=== PATIENT | male | born 1975 | race Two or more races ===

== ENCOUNTER 2024-05-22 20:56 | Emergency (ER) | payer OTHER ==
[~2024-05-22] VITALS: Ht 165.1 cm; Wt 108.9 kg
[2024-05-22 21:17] VITALS: O2SAT 89
[2024-05-22] MEDS ORDERED: AMLODIPINE-OLM1 EAC3 (21:17)
[2024-05-22] MEDS ORDERED: LOSARTAN POTASS25 MG (21:17)
[2024-05-22] MEDS ORDERED: METHYLPREDNISOLONE SOD SUCC 40 MG VIAL ONE (22:25)
[2024-05-22] MEDS ORDERED: CEFTRIAXONE SODIUM 1,000 MG VIAL ONE (22:25)
[2024-05-22] MEDS ORDERED: IPRATROPIUM/ALBUTEROL SULFATE 3 ML AMPUL.NEB IH ONE ×3 (22:30→23:55)
[2024-05-22] MEDS ORDERED: CEFTRIAXONE SODIUM 1,000 MG VIAL IM ONE (22:30)
[2024-05-22] MEDS ORDERED: METHYLPREDNISOLONE SOD SUCC 40 MG VIAL IM ONE (22:30)
[2024-05-22 23:17] LABS: HEMATOCRIT 39.7 % (39.0-48.0); HEMOGLOBIN 13.6 g/dL (13-16.00); MEAN CORPUSCULAR HEMOGLOBIN 29.2 pg (27.00-32.0); MEAN CORPUSCULAR HGB CONC 34.3 g/dl (32.0-36.0); PLATELET COUNT 206 K/uL (150-450); RED BLOOD COUNT 4.67 M/uL (4.00-6.00); RED CELL DISTRIBUTION WIDTH 13.6 % (11.5-14.5)
[2024-05-22 23:51] LABS: ALBUMIN 3.4 gm/dL (3.4-5.0); BILIRUBIN TOTAL 0.5 mg/dL (0.3-1.2); CALCIUM 8.8 mg/dL (8.5-10.1); CREATININE SERUM 1.29 mg/dL (0.70-1.30); GFR 59.45; GLOBULINA 3.7 G/DL (2.4-3.5); TOTAL PROTEIN 7.1 gm/dL (6.4-8.2)
[2024-05-23 00:05] LABS: POTASSIUM 2.57 mEq/L (3.5-5.1)
[2024-05-23] MEDS ORDERED: PEPCID AC20 MG PO (00:29)
[2024-05-23] MEDS ORDERED: OSEL75CA PO (00:29)
[2024-05-23 02:14] LABS: ABG PH 7.446 (7.35-7.45); ABG pCO2 45.7 mmHg (35-45)
[2024-05-23 02:15] LABS: ABG PO2 59.9 mmHg (80-100); BASE EXCESS 5.7 mmol/l; BICARBONATE 30.7 mmol/l (23-25); SaO2 92.1 %; Tco2 32.1 mmol/l; allen test SATISFACTORY; o2 21 %; puncture site RADIAL RIGHT
== END 2024-05-23 00:56 | disposition home or self-care (01) ==
LOC: ER 20:58
PROVIDERS: General Practice
DX: R06.02 Shortness of breath (principal); Z20.822 Contact with and (suspected) exposure to COVID-19; I10 Essential (primary) hypertension